=== PATIENT | male | born 1965 | race Caucasian/White ===

== ENCOUNTER 2018-06-17 20:00 | Inpatient (IN) | payer MEDICARE, OTHER ==
[2018-06-18 01:48] VITALS: BP 123/65
[2018-06-18] MEDS ORDERED: LACOSAMIDE PO SCH (09:00)
[2018-06-18] MEDS ORDERED: LISINOPRIL PO SCH (09:00)
[2018-06-18] MEDS ORDERED: MYCOPHENOLATE MOFETIL PO SCH (09:00)
[2018-06-18] MEDS: Levothyroxine 0.088 Mg Tab PO SCH (09:30)
[2018-06-18] MEDS: LURASIDONE HCL PO SCH (13:00)
[2018-06-18] MEDS ORDERED: TACROLIMUS PO SCH (17:00)
--- NOTE | 2018-06-18 19:20 | History & Physical ---
ADMIT DATE: 06/17/2018 DATE OF ADMISSION: 06/17/2018 REASON FOR ADMISSION: Psychiatric disorder. HISTORY OF PRESENT ILLNESS: This 53-year-old male with underlying multiple medical problems including renal transplant, seizure disorder, hypothyroidism, old CVA; late effect, was admitted for underlying psychiatric illness by Dr. Corley. Dr. Corley requested medical H and P on this patient. The patient is complaining of headache and low back pain per nursing staff. No reported fever, no chills, no nausea, no vomiting, no diarrhea, no abdominal pain, no constipation, no bleeding issues reported. PAST MEDICAL HISTORY: As per HPI. PAST SURGICAL HISTORY: No Signiant past surgical history. SOCIAL HISTORY: The patient is a prison resident. No reported alcohol or tobacco use. CURRENT MEDICATIONS: Tylenol, Ecotrin, vitamin D3, Depakote, Atarax, Vimpat, Keppra, Synthroid, Ativan, mag oxide, prednisone, Zoloft, tacrolimus, Ultram, and Ambien. ALLERGIES: ALLERGIC TO FISH, HYDROMORPHONE, KETOROLAC. REVIEW OF SYSTEMS: As per HPI, 12-point system reviewed, appears negative. PHYSICAL EXAMINATION: VITAL SIGNS: Temperature 97.4, pulse 68, respiration 18, blood pressure , pulse oximetry 98% on room air. HEART: S1, S2 normal. LUNGS: Clear to auscultation. ABDOMEN: Soft. EXTREMITIES: No edema. NEUROLOGIC: The patient is awake, but confused, left-sided weakness noted. LABORATORY DATA: Available laboratory data has been reviewed. ASSESSMENT: 1. Old cerebrovascular accident, late effect. 2. Renal transplant status. 3. Seizure disorder. 4. Hypothyroidism. 5. Vitamin D deficiency. 6. Low back pain. 7. Mental disorder. PLAN: The patient admitted to [facility]. Psych management per psychiatrist. The patient will be continued on Prograf, prednisone, Synthroid, Keppra, Vimpat, Atarax, vitamin D3, aspirin, Tylenol. Tramadol ordered for pain control. Fall precaution, aspiration precaution will be given. Patient's condition and plan discussed with nursing staff. Thank you Dr. Corley for allowing me to participate in the care of this patient. JOB# [id number]
[2018-06-19] MEDS: LURASIDONE HCL PO SCH (08:57)
[2018-06-19] MEDS: Levothyroxine 0.088 Mg Tab PO SCH (09:10)
--- NOTE | 2018-06-19 16:10 | General Progress Note ---
Subjective - Review of Systems Service Date: 06/19/18 Subjective: Patient doing fine denied any complaints Objective - Results Recent Labs: Laboratory Last Values POC Glucose 92 MG/DL (70 - 105) 06/17/18 21:52 - Physical Exam Vitals and I&O: Vital Signs Temp 97.6 F 06/18/18 18:25 Pulse 69 06/18/18 18:25 Resp 19 06/18/18 18:25 BP 130/74 06/18/18 18:25 Pulse Ox 95 06/18/18 18:25 Active Medications: Current Medications Acetaminophen (Tylenol) 650 mg PO Q4HR PRN PRN Reason: Mild Pain / Temp above 100 Stop: 08/16/18 22:52 Last Admin: 06/18/18 06:01 Dose: 650 mg Aspirin (Ecotrin) 81 mg PO DAILY [facility] Stop: 08/17/18 08:59 Last Admin: 06/19/18 08:51 Dose: 81 mg Cholecalciferol (Vitamin D3) 1,000 iu PO DAILY [facility] Stop: 08/17/18 08:59 Last Admin: 06/19/18 08:51 Dose: 1,000 iu Divalproex Sodium (Depakote Dr) 250 mg PO BID [facility]; Protocol Stop: 08/17/18 08:59 Last Admin: 06/19/18 08:52 Dose: 250 mg Hydroxyzine HCl (Atarax) 25 mg PO HS [facility]; Protocol Stop: 08/17/18 20:59 Last Admin: 06/18/18 21:16 Dose: 25 mg Lacosamide (Vimpat) 100 mg PO DAILY [facility] Stop: 08/17/18 08:59 Last Admin: 06/19/18 08:51 Dose: 100 mg Levetiracetam (Keppra) 500 mg PO BID [facility] Stop: 08/17/18 08:59 Last Admin: 06/19/18 08:51 Dose: 500 mg Levothyroxine Sodium (Synthroid) 0.088 mg PO DAILY [facility] Stop: 08/17/18 08:59 Last Admin: 06/19/18 09:10 Dose: Not Given Lorazepam (Ativan) 0.5 mg PO Q4HR PRN; Protocol PRN Reason: Anxiety Stop: 07/17/18 22:52 Last Admin: 06/18/18 10:16 Dose: 0.5 mg Magnesium Oxide (Mag-Oxide) 400 mg PO BID [facility] Stop: 08/17/18 08:59 Last Admin: 06/19/18 08:51 Dose: 400 mg Miscellaneous (Lurasidone Hcl [Latuda]) 1 tab PO DAILY [facility] Stop: 08/17/18 08:59 Last Admin: 06/19/18 08:57 Dose: 1 tab Miscellaneous (Lisinopril [Zestril*]) 1 tab PO DAILY [facility] Stop: 08/17/18 08:59 Patient Own Medication (Patient Own Med) 1 PO BID [facility] Stop: 08/18/18 16:59 Prednisone (Deltasone) 5 mg PO DAILY [facility] Stop: 08/17/18 08:59 Last Admin: 06/19/18 08:51 Dose: 5 mg Sertraline HCl (Zoloft) 150 mg PO DAILY [facility] Stop: 08/17/18 08:59 Last Admin: 06/19/18 08:51 Dose: 150 mg Tramadol HCl (Ultram) 50 mg PO Q6HR PRN PRN Reason: Pain (Moderate) Stop: 08/17/18 16:27 Last Admin: 06/19/18 09:33 Dose: 50 mg Zolpidem Tartrate (Ambien) 5 mg PO HS PRN PRN Reason: Insomnia Stop: 08/16/18 22:52 Last Admin: 06/17/18 23:24 Dose: 5 mg Cardiovascular: Regular rate Lungs: Clear to auscultation Assessment/Plan - Assessment Assessment: Low back pain Seizure disorder Old cva late affect Hypothyroidism - Plan Plan: Patient doing fine medically Continue current medical treatment plan
--- NOTE | 2018-06-19 19:54 | Progress Notes ---
DATE: 06/19/2018 SUBJECTIVE: Chart reviewed and the patient interviewed. Also discussed the patient's condition with staff and reviewed records and labs. The patient continued to be in angry mood. The patient also is still depressed and is still withdrawn and easily agitated. The patient also is living with his mother and he is feeling overwhelmed. The patient also is still feeling hopeless and is still forgetful and has difficulty juan for safety. Otherwise, the patient continued to take Depakote and Zoloft with no side effects. ASSESSMENT: The patient still can be dangerous to self. TREATMENT PLAN: Continue to monitor his behavior and his condition closely. Also, continue to work on his ineffective coping and his impulsivity. Also, the patient on Lexapro for his depression. JOB# [id number]
[2018-06-20] MEDS: LURASIDONE HCL PO SCH (09:12)
[2018-06-20] MEDS: Levothyroxine 0.088 Mg Tab PO SCH (09:16)
[2018-06-20 11:10] LABS: % BASOPHILS 0.2 % (0.0-2.0); % EOSINOPHILS 2.5 % (0.0-5.0); % LYMPHOCYTES 24.3 % (20.0-50.0); % MONOCYTES 7.9 % (2.0-10.0); % NEUTROPHILS 65.1 % (40.0-80.0); EOSINOPHILE ABSOLUTE 0.2 Th/cmm (0.1-0.4); HEMATOCRIT 45.7 % (41.0-60); HEMOGLOBIN 15.5 gm/dL (12-16); LYMPHOCYTE ABSOLUTE 2.4 Th/cmm (1.5-3.0); MEAN CELL VOLUME 89.5 fl (80-99); MEAN CORPUSCULAR HEMOGLOBIN 30.4 pg (26.0-30.0); MEAN PLATELET VOLUME 7.4 fl; MONOCYTE ABSOLUTE 0.8 Th/cmm (0.3-1.0); NEUTROPHILE ABSOLUTE 6.3 Th/cmm (1.8-8.0); PLATELET COUNT 224 Th/cmm (150-400); RED BLOOD COUNT 5.11 Mil/cmm (4.30-5.70); RED CELL DISTRIBUTION WIDTH 14.2 % (11.5-20.0); WHITE BLOOD COUNT 9.7 Th/cmm (4.8-10.8)
[2018-06-20 11:21] LABS: ANION GAP 11.2 (7.0-16.0); BUN - UREA NITROGEN 16 mg/dL (7-25); CALCIUM SERUM 9.3 mg/dL (8.6-10.3); CARBON DIOXIDE 22.5 mEq/L (21.0-31.0); CHLORIDE 105 mEq/L (98-107); CREATININE - SERUM 0.8 mg/dL (0.7-1.3); GFR AFRICAN-AMERICAN > 60.0 ml/min (>90); GFR NON AFRICAN-AMERICAN > 60.0 ml/min; GLUCOSE 99 mg/dL (70-105); POTASSIUM SERUM 3.7 mEq/L (3.5-5.1); SODIUM SERUM 135 mEq/L (136-145)
--- NOTE | 2018-06-20 23:00 | Progress Notes ---
DATE: 06/20/[address] Corley. SUBJECTIVE: Case was discussed with staff of the patient, reviewed records. This is a 53-year-old male who is admitted on 06/17/2018. The patient continues to be angry, irritable. The patient was admitted because of depression, out of control behavior, agitation. He ____ his mother, feeling overwhelmed, feeling hopeless. He is forgetful, unable to contract for safety. The patient is on Depakote and Zoloft. His current dosage is Depakote 250 mg twice a day and Latuda was discontinued because it is not available. He is on Zoloft 150 mg a day with no side effects, no sedation, no nausea, no extrapyramidal symptoms. I will continue outpatient group therapy, milieu therapy, and adjust the medication as needed. JOB# [id number]
--- NOTE | 2018-06-21 02:46 | Psychiatric Evaluation ---
DATE OF SERVICE: 06/18/[address] Matthew Corley. REASON FOR ADMISSION: This is a 53-year-old male admitted from [facility]. The patient apparently has been depressed and has been endorsing suicidal ideations. HISTORY OF PRESENT ILLNESS: This is a 53-year-old male admitted to [facility] unit. The patient is coming from [facility]. The patient has been endorsing worsening depression and suicidal ideation and was transferred from [place] to [facility] for ongoing medical care and psychiatric care. The patient was attempted to be interviewed this morning. However, the patient under the blanket, he is not wanting to be interviewed at this time. He is moving around under the blanket and told this provider to "leave him alone." The patient apparently to the staff has been very angry, easily agitated, uncooperative, overall. PAST PSYCHIATRIC HISTORY: Largely unknown at this time due to the patient's poor cooperation. PAST MEDICAL HISTORY: Largely unknown at this time due to the patient's poor cooperation. ALLERGIES: Multiple and they are all reviewed in the chart including FISH, HYDROMORPHONE, KETOROLAC and LEVOFLOXACIN. SOCIAL HISTORY: Largely unknown at this time due to the patient's poor cooperation. LEGAL HISTORY: Largely unknown at this time due to the patient's poor cooperation. FAMILY HISTORY: Largely unknown at this time due to the patient's poor cooperation. REVIEW OF SYSTEMS: Largely unknown at this time due to the patient's poor cooperation. SUBSTANCE ABUSE HISTORY: Largely unknown at this time due to the patient's poor cooperation. MENTAL STATUS EXAMINATION: The patient is lying in bed. He is malodorous. He is covering himself with a blanket and unwilling to remove the blanket. He grunts when his name is called and moves around in bed, but otherwise is uncooperative. He does seem to be alert. He does seem to be oriented to his name due to his response. Otherwise, unable to assess. He appears to have thought disorganization. He also has been endorsing suicidal ideations, but he is guarded in regards to this during the interview and unwilling to discuss anything at this time and he is selectively mute. ASSESSMENT: This is a 53-year-old male admitted to [facility] for worsening depression, suicidal ideations. The patient also has multiple medical issues. The patient has been angry, has been easily agitated, has been labile on the unit. In addition, he has been uncooperative. He is unwilling to participate with the interview. The patient is also guarded in regards to his emotional state. PROVISIONAL DIAGNOSIS: Unspecified depressive disorder. PLAN: 1. We will accept the patient to acute hospitalization. 2. We will continue medications as prescribed. 3. We will encourage the patient to verbalize his needs and to participate in group and milieu therapy. We will also encourage the patient to work with social work case manager and case aide for discharge planning and the need for community resources. Also consult Internal Medicine for physical exam prior to any further treatment. ESTIMATED LENGTH OF STAY: 5-7 days. STRENGTHS: Largely unknown at this time. WEAKNESSES: The patient has poor coping skills and also social stressors. CRITERIA FOR DISCHARGE: The patient will no longer be suicidal. He will be less depressed and have a self-care plan. [facility]# [id number] JV
[2018-06-21] MEDS: Levothyroxine 0.088 Mg Tab PO SCH (09:29)
[2018-06-21] MEDS ORDERED: PROGRAF 1 MG PO SCH (11:00)
--- NOTE | 2018-06-21 16:01 | Progress Notes ---
DATE: 06/21/2018 SUBJECTIVE: The patient is coming in to the [facility], coming from [place], endorsing depression. ____ very depressed, hopeless, and despairing. The patient notes that his appetite has been decreasing. He attests to fair sleep. He was initially very upset. ____ saw the patient yesterday. Noting he remains angry, irritable, down, feeling overwhelmed. The patient mostly isolative, currently in his room, not really interacting with others. Slept for about 6 hours last night. Appearing depressed, withdrawn. ASSESSMENT: Concerns for suicidality, still depressed, withdrawn, mostly staying to himself. We will continue to monitor. Medications were noted. Continue Zoloft. Consider adjunctive treatment for example Josefy. JOB# [id number]
[2018-06-21] MEDS: PROGRAF 1 MG PO SCH (16:28)
[2018-06-22] MEDS: PROGRAF 1 MG PO SCH ×2 (06:45→16:53)
[2018-06-22] MEDS: Levothyroxine 0.088 Mg Tab PO SCH (09:00)
[2018-06-22] MEDS: LATUDA 20 MG PO SCH (16:54)
[2018-06-23] MEDS: PROGRAF 1 MG PO SCH (08:24)
[2018-06-23] MEDS: Levothyroxine 0.088 Mg Tab PO SCH (08:25)
[2018-06-23] MEDS: LATUDA 20 MG PO SCH (09:25)
--- NOTE | 2018-06-23 21:57 | Progress Notes ---
DATE: 06/23/2018 SUBJECTIVE: Chart reviewed and the patient interviewed. Also discussed the patient's condition with the staff and reviewed records and labs. The patient is still anxious and he is still depressed. The patient also is still isolative and withdrawn and is still feeling hopeless and helpless. The patient also is still having difficulty with his temper. Otherwise, the patient is compliant with taking his medications and the patient continued to take Depakote 250 mg twice a day. The patient is still high risk for suicide and still at times talking about suicide with plan to overdose on pills. ASSESSMENT: The patient is still depressed and is still high risk for suicide. TREATMENT PLAN: We will continue monitoring his behavior and his condition closely. Also, continue to work on his irritability, his agitation, and his ineffective coping. [facility]# [id number]
[2018-06-24] MEDS: LATUDA 20 MG PO SCH (10:00)
[2018-06-24] MEDS: Levothyroxine 0.088 Mg Tab PO SCH (10:00)
[2018-06-24] MEDS: PROGRAF 1 MG PO SCH (16:44)
--- NOTE | 2018-06-24 22:09 | General Progress Note ---
Subjective - Review of Systems Subjective: Patient doing fine denied any complaints Objective - Results Result Diagrams: 06/20/18 10:55 06/20/18 10:55 Recent Labs: Laboratory Last Values WBC 9.7 Th/cmm (4.8-10.8) 06/20/18 10:55 RBC 5.11 Mil/cmm (4.30-5.70) 06/20/18 10:55 Hgb 15.5 gm/dL (12-16) 06/20/18 10:55 Hct 45.7 % (41.0-60) 06/20/18 10:55 MCV 89.5 fl (80-99) 06/20/18 10:55 MCH 30.4 pg (26.0-30.0) H 06/20/18 10:55 MCHC Differential 34.0 pg (28.0-36.0) 06/20/18 10:55 RDW 14.2 % (11.5-20.0) 06/20/18 10:55 Plt Count 224 Th/cmm (150-400) 06/20/18 10:55 MPV 7.4 fl 06/20/18 10:55 Neutrophils % 65.1 % (40.0-80.0) 06/20/18 10:55 Lymphocytes % 24.3 % (20.0-50.0) 06/20/18 10:55 Monocytes % 7.9 % (2.0-10.0) 06/20/18 10:55 Eosinophils % 2.5 % (0.0-5.0) 06/20/18 10:55 Basophils % 0.2 % (0.0-2.0) 06/20/18 10:55 Sodium 135 mEq/L (136-145) L 06/20/18 10:55 Potassium 3.7 mEq/L (3.5-5.1) 06/20/18 10:55 Chloride 105 mEq/L (98-107) 06/20/18 10:55 Carbon Dioxide 22.5 mEq/L (21.0-31.0) 06/20/18 10:55 Anion Gap 11.2 (7.0-16.0) 06/20/18 10:55 BUN 16 mg/dL (7-25) 06/20/18 10:55 Creatinine 0.8 mg/dL (0.7-1.3) 06/20/18 10:55 Est GFR ( Amer) > 60.0 ml/min (>90) 06/20/18 10:55 Est GFR (Non-Af Amer) > 60.0 ml/min 06/20/18 10:55 BUN/Creatinine Ratio 20.0 06/20/18 10:55 Glucose 99 mg/dL (70-105) 06/20/18 10:55 POC Glucose 92 MG/DL (70 - 105) 06/17/18 21:52 Calcium 9.3 mg/dL (8.6-10.3) 06/20/18 10:55 Valproic Acid 20.5 ug/mL (50.0-100.0) L 06/23/18 08:22 - Physical Exam Vitals and I&O: Vital Signs Temp 98.2 F 06/24/18 15:34 Pulse 88 06/24/18 15:34 Resp 19 06/24/18 15:34 BP 117/62 06/24/18 15:34 Pulse Ox 96 06/24/18 15:34 Intake & Output 06/24/18 06/24/18 06/25/18 06:59 18:59 06:59 Intake Total 500 1000 Balance 500 1000 Intake: Oral 500 1000 Other: # Voids 2 4 # Bowel Movements 0 0 Active Medications: Current Medications Acetaminophen (Tylenol) 650 mg PO Q4HR PRN PRN Reason: Mild Pain / Temp above 100 Stop: 08/16/18 22:52 Last Admin: 06/20/18 21:06 Dose: 650 mg Aspirin (Ecotrin) 81 mg PO DAILY [facility] Stop: 08/17/18 08:59 Last Admin: 06/24/18 10:00 Dose: 81 mg Cholecalciferol (Vitamin D3) 1,000 iu PO DAILY [facility] Stop: 08/17/18 08:59 Last Admin: 06/24/18 10:00 Dose: 1,000 iu Divalproex Sodium (Depakote Dr) 250 mg PO BID [facility]; Protocol Stop: 08/17/18 08:59 Last Admin: 06/24/18 16:45 Dose: 250 mg Hydroxyzine HCl (Atarax) 25 mg PO HS [facility]; Protocol Stop: 08/17/18 20:59 Last Admin: 06/24/18 21:25 Dose: 25 mg Lacosamide (Vimpat) 100 mg PO DAILY [facility] Stop: 08/17/18 08:59 Last Admin: 06/24/18 10:00 Dose: 100 mg Levetiracetam (Keppra) 500 mg PO BID [facility] Stop: 08/17/18 08:59 Last Admin: 06/24/18 16:45 Dose: 500 mg Levothyroxine Sodium (Synthroid) 0.088 mg PO DAILY [facility] Stop: 08/17/18 08:59 Last Admin: 06/24/18 10:00 Dose: Not Given Lorazepam (Ativan) 0.5 mg PO Q4HR PRN; Protocol PRN Reason: Anxiety Stop: 07/17/18 22:52 Last Admin: 06/23/18 21:33 Dose: 0.5 mg Magnesium Oxide (Mag-Oxide) 400 mg PO BID [facility] Stop: 08/17/18 08:59 Last Admin: 06/24/18 16:45 Dose: 400 mg Patient Own Med- Latuda (Lurasidone) 20mg Tab 1 PO DAILY [facility] Stop: 08/21/18 11:59 Last Admin: 06/24/18 10:00 Dose: 1 Patient Own Med- Prograf (Tacrolimus) 1mg Cap 1 PO BIDAC [facility] Stop: 08/20/18 10:59 Last Admin: 06/24/18 16:44 Dose: 1 Prednisone (Deltasone) 5 mg PO DAILY [facility] Stop: 08/17/18 08:59 Last Admin: 06/24/18 10:00 Dose: 5 mg Sertraline HCl (Zoloft) 200 mg PO DAILY [facility] Stop: 08/22/18 08:59 Last Admin: 06/24/18 10:00 Dose: 200 mg Tramadol HCl (Ultram) 50 mg PO Q6HR PRN PRN Reason: Pain (Moderate) Stop: 08/17/18 16:27 Last Admin: 06/23/18 21:33 Dose: 50 mg Zolpidem Tartrate (Ambien) 5 mg PO HS PRN PRN Reason: Insomnia Stop: 08/16/18 22:52 Last Admin: 06/23/18 21:30 Dose: 5 mg Cardiovascular: Regular rate Lungs: Clear to auscultation Assessment/Plan - Assessment Assessment: Low back pain Seizure disorder Old cva late affect Hypothyroidism - Plan Plan: Patient doing fine medically Continue current medical treatment plan Nutritional Asmnt/Malnutr-PDOC - Dietary Evaluation Malnutrition Findings (Please click <Entered> for more info): Nutritional Asmnt/Malnutrition Start: 06/24/18 13: 16 Text: Status: Complete Freq: Protocol: Document 06/24/18 13:16 STEPHEN (Rec: 06/24/18 13:51 STEPHEN [email or web address]) Nutritional Asmnt/Malnutrition Patient General Information Nutritional Screening Low Risk Diagnosis Psychiatric disorder Pertinent Medical Hx/Surgical Hx renal transplant, seizure disorder, hypothyroidism, old CVA. Subjective Information PO intake over the last 2 days : 50-100-75-0%, about 50% overall (meeting 90% of estimated protein needs and 61 % estimeated energy needs). Pt refused breakfast and dinner 06/23. Pt sleeping in room at time of visit. Per nurse, Pt ate 90% of breakfast this morning. Current Diet Order/ Nutrition Support regluar Pertinent Medications Vit D3, synthroid, Mag-Oxide Pertinent Labs 06/20 Na 135 Nutritional Hx/Data Height 1.73 m Height (Calculated Centimeters) 172.7 Current Weight (lbs) 95.254 kg Weight (Calculated Kilograms) 95.3 Weight (Calculated Grams) 65440.4 [place] Body Weight 154 Body Mass Index (BMI) 31.9 Weight Status Obese GI Symptoms GI Symptoms None Last BM none noted Skin Integrity/Comment: Potential risk due to immobility skin intact Current %PO Good (75-100%) Estimated Nutritional Goals BEE in Kcals: Adj wt of IBW Calories/Kcals/Kg 25-30 Kcals Calculated 8470-0807 Protein: Adj wt of IBW Protein g/k.8-1 Protein Calculated 64-80 Fluid: ml 4812-4387 (1ml/kcal) Nutritional Problem No current Nutrition Prob Problem N/A Malnutrition Related to Morbid Obesity Malnutrition related to morbid obesity No Intervention/Recommendation Comments Monitor PO intake. Continue current regular diet order. Pt moderate risk, Follow-up in 3 -5 days, 06/27-06/29. Expected Outcomes/Goals Expected Outcomes/Goals Pt to consume >75% estimated energy and continue to consume >75% protein needs within 2-3 days. Reviewed by Berta Stein RD Physician Parameters for PEM Normal Weight % 90% - 110% (Normal)
[2018-06-25] MEDS: PROGRAF 1 MG PO SCH ×2 (06:45→16:17)
[2018-06-25] MEDS: LATUDA 20 MG PO SCH (09:00)
[2018-06-25] MEDS: Levothyroxine 0.088 Mg Tab PO SCH (12:10)
--- NOTE | 2018-06-25 23:38 | Progress Notes ---
DATE: 06/25/[address] Corley. Case was discussed with staff of the patient, reviewed records. This is a well-known case to me as I have seen him before covering for Dr. Corley. The patient continues to be depressed, continues to isolate himself, withdrawn, feeling hopeless and helpless, difficulty with . The patient has been compliant with the medication. He is still at risk for suicide with plan to overdose, but he is willing to contract for safety while in the hospital, has been compliant with the medication with no side effects, no sedation, no nausea and he is on Depakote 250 mg twice a day and Zoloft 200 mg daily and with no side effects with the medication, no sedation, no nausea. We will continue the patient with group therapy, milieu therapy, and adjust medication as needed. JOB# [id number]
[2018-06-26] MEDS: PROGRAF 1 MG PO SCH ×2 (09:06→16:46)
[2018-06-26] MEDS: Levothyroxine 0.088 Mg Tab PO SCH (09:07)
[2018-06-26] MEDS: LATUDA 20 MG PO SCH (09:09)
--- NOTE | 2018-06-26 13:06 | General Progress Note ---
Subjective - Review of Systems Service Date: 06/26/18 Subjective: Patient doing fine denied any complaints Objective - Results Result Diagrams: 06/20/18 10:55 06/20/18 10:55 Recent Labs: Laboratory Last Values WBC 9.7 Th/cmm (4.8-10.8) 06/20/18 10:55 RBC 5.11 Mil/cmm (4.30-5.70) 06/20/18 10:55 Hgb 15.5 gm/dL (12-16) 06/20/18 10:55 Hct 45.7 % (41.0-60) 06/20/18 10:55 MCV 89.5 fl (80-99) 06/20/18 10:55 MCH 30.4 pg (26.0-30.0) H 06/20/18 10:55 MCHC Differential 34.0 pg (28.0-36.0) 06/20/18 10:55 RDW 14.2 % (11.5-20.0) 06/20/18 10:55 Plt Count 224 Th/cmm (150-400) 06/20/18 10:55 MPV 7.4 fl 06/20/18 10:55 Neutrophils % 65.1 % (40.0-80.0) 06/20/18 10:55 Lymphocytes % 24.3 % (20.0-50.0) 06/20/18 10:55 Monocytes % 7.9 % (2.0-10.0) 06/20/18 10:55 Eosinophils % 2.5 % (0.0-5.0) 06/20/18 10:55 Basophils % 0.2 % (0.0-2.0) 06/20/18 10:55 Sodium 135 mEq/L (136-145) L 06/20/18 10:55 Potassium 3.7 mEq/L (3.5-5.1) 06/20/18 10:55 Chloride 105 mEq/L (98-107) 06/20/18 10:55 Carbon Dioxide 22.5 mEq/L (21.0-31.0) 06/20/18 10:55 Anion Gap 11.2 (7.0-16.0) 06/20/18 10:55 BUN 16 mg/dL (7-25) 06/20/18 10:55 Creatinine 0.8 mg/dL (0.7-1.3) 06/20/18 10:55 Est GFR ( Amer) > 60.0 ml/min (>90) 06/20/18 10:55 Est GFR (Non-Af Amer) > 60.0 ml/min 06/20/18 10:55 BUN/Creatinine Ratio 20.0 06/20/18 10:55 Glucose 99 mg/dL (70-105) 06/20/18 10:55 POC Glucose 92 MG/DL (70 - 105) 06/17/18 21:52 Calcium 9.3 mg/dL (8.6-10.3) 06/20/18 10:55 Valproic Acid 20.5 ug/mL (50.0-100.0) L 06/23/18 08:22 - Physical Exam Vitals and I&O: Vital Signs Temp 98.4 F 06/26/18 06:30 Pulse 65 06/26/18 06:30 Resp 20 06/26/18 06:30 BP 121/70 06/26/18 06:30 Pulse Ox 96 06/26/18 06:30 Intake & Output 06/25/18 06/26/18 06/26/18 18:59 06:59 18:59 Intake Total 1000 Balance 1000 Intake: Oral 1000 Other: # Voids 3 # Bowel Movements 1 Active Medications: Current Medications Acetaminophen (Tylenol) 650 mg PO Q4HR PRN PRN Reason: Mild Pain / Temp above 100 Stop: 08/16/18 22:52 Last Admin: 06/25/18 04:36 Dose: 650 mg Aspirin (Ecotrin) 81 mg PO DAILY [facility] Stop: 08/17/18 08:59 Last Admin: 06/26/18 09:06 Dose: 81 mg Cholecalciferol (Vitamin D3) 1,000 iu PO DAILY [facility] Stop: 08/17/18 08:59 Last Admin: 06/26/18 09:05 Dose: 1,000 iu Divalproex Sodium (Depakote Dr) 250 mg PO BID [facility]; Protocol Stop: 08/17/18 08:59 Last Admin: 06/26/18 09:04 Dose: 250 mg Hydroxyzine HCl (Atarax) 25 mg PO HS [facility]; Protocol Stop: 08/17/18 20:59 Last Admin: 06/25/18 20:43 Dose: 25 mg Levetiracetam (Keppra) 500 mg PO BID [facility] Stop: 08/17/18 08:59 Last Admin: 06/26/18 09:04 Dose: 500 mg Levothyroxine Sodium (Synthroid) 0.088 mg PO DAILY [facility] Stop: 08/17/18 08:59 Last Admin: 06/26/18 09:07 Dose: Not Given Lorazepam (Ativan) 0.5 mg PO Q4HR PRN; Protocol PRN Reason: Anxiety Stop: 07/17/18 22:52 Last Admin: 06/25/18 20:44 Dose: 0.5 mg Magnesium Oxide (Mag-Oxide) 400 mg PO BID [facility] Stop: 08/17/18 08:59 Last Admin: 06/26/18 09:04 Dose: 400 mg Patient Own Med- Latuda (Lurasidone) 20mg Tab 1 PO DAILY [facility] Stop: 08/21/18 11:59 Last Admin: 06/26/18 09:09 Dose: 1 Patient Own Med- Prograf (Tacrolimus) 1mg Cap 1 PO BIDAC [facility] Stop: 08/20/18 10:59 Last Admin: 06/26/18 09:06 Dose: Not Given Prednisone (Deltasone) 5 mg PO DAILY [facility] Stop: 08/17/18 08:59 Last Admin: 06/26/18 09:04 Dose: 5 mg Sertraline HCl (Zoloft) 200 mg PO DAILY [facility] Stop: 08/22/18 08:59 Last Admin: 06/26/18 09:05 Dose: 200 mg Zolpidem Tartrate (Ambien) 5 mg PO HS PRN PRN Reason: Insomnia Stop: 08/16/18 22:52 Last Admin: 06/25/18 20:44 Dose: 5 mg Cardiovascular: Regular rate Lungs: Clear to auscultation Assessment/Plan - Assessment Assessment: Low back pain Seizure disorder Old cva late affect Hypothyroidism - Plan Plan: Patient doing fine medically Continue current medical treatment plan Nutritional Asmnt/Malnutr-PDOC - Dietary Evaluation Malnutrition Findings (Please click <Entered> for more info): Nutritional Asmnt/Malnutrition Start: 06/24/18 13: 16 Text: Status: Complete Freq: Protocol: Document 06/24/18 13:16 STEPHEN (Rec: 06/24/18 13:51 STEPHEN [id number]) Nutritional Asmnt/Malnutrition Patient General Information Nutritional Screening Low Risk Diagnosis Psychiatric disorder Pertinent Medical Hx/Surgical Hx renal transplant, seizure disorder, hypothyroidism, old CVA. Subjective Information PO intake over the last 2 days : 50-100-75-0%, about 50% overall (meeting 90% of estimated protein needs and 61 % estimeated energy needs). Pt refused breakfast and dinner 06/23. Pt sleeping in room at time of visit. Per nurse, Pt ate 90% of breakfast this morning. Current Diet Order/ Nutrition Support regluar Pertinent Medications Vit D3, synthroid, Mag-Oxide Pertinent Labs 06/20 Na 135 Nutritional Hx/Data Height 1.73 m Height (Calculated Centimeters) 172.7 Current Weight (lbs) 95.254 kg Weight (Calculated Kilograms) 95.3 Weight (Calculated Grams) 33332.4 [place] Body Weight 154 Body Mass Index (BMI) 31.9 Weight Status Obese GI Symptoms GI Symptoms None Last BM none noted Skin Integrity/Comment: Potential risk due to immobility skin intact Current %PO Good (75-100%) Estimated Nutritional Goals BEE in Kcals: Adj wt of IBW Calories/Kcals/Kg 25-30 Kcals Calculated 7194-5462 Protein: Adj wt of IBW Protein g/k.8-1 Protein Calculated 64-80 Fluid: ml 5816-5254 (1ml/kcal) Nutritional Problem No current Nutrition Prob Problem N/A Malnutrition Related to Morbid Obesity Malnutrition related to morbid obesity No Intervention/Recommendation Comments Monitor PO intake. Continue current regular diet order. Pt moderate risk, Follow-up in 3 -5 days, 06/27-06/29. Expected Outcomes/Goals Expected Outcomes/Goals Pt to consume >75% estimated energy and continue to consume >75% protein needs within 2-3 days. Reviewed by Berta Stein RD Physician Parameters for [facility] Normal Weight % 90% - 110% (Normal)
--- NOTE | 2018-06-26 17:23 | Progress Notes ---
DATE: 06/24/2018 PSYCHIATRIC PROGRESS NOTE SUBJECTIVE: Chart reviewed and patient interviewed. Also discussed the patient's condition with the staff and reviewed records and labs. The patient is complaining of stiff neck. He is still depressed and crying. The patient also is still isolative and withdrawn. The patient also is labile and he is in a depressed mood. He also is still guarded and withdrawn. Otherwise, the patient is compliant with taking his medications with no side effects of medications. ASSESSMENT: The patient is still depressed and is still withdrawn. TREATMENT PLAN: Continue to monitor his behavior and his condition closely. Also, continue to work on his ineffective coping and his depressed mood and we will continue to follow up. [facility]# [id number]
--- NOTE | 2018-06-26 18:19 | Progress Notes ---
DATE: SUBJECTIVE: Chart reviewed and the patient interviewed. Also discussed the patient's condition with the staff and reviewed records and labs. The patient seems to be slightly calmer, but he still has episodes of agitation and paranoia. Also, is still confused. Also, unpredictable behavior and gets agitated at times. Otherwise, the patient is compliant with taking his medications with no side effects of medications. ASSESSMENT: The patient is still agitated and confused. TREATMENT PLAN: Continue to monitor behavior and condition closely. Also, continue adjusting psychotropic medications and followup. JOB# [id number]
--- NOTE | 2018-06-26 21:47 | Progress Notes ---
DATE: 06/26/[address] Corley. Case was discussed with staff of the patient, reviewed records. The patient continues to isolate himself. Continues to have thoughts of wanting to harm himself at times; however, he is willing to contract for safety. He is sleeping better, eating better. He has been compliant with the medication with no side effects, no sedation, no nausea. His Zoloft was increased to 200 mg a day. He is on Depakote 250 mg twice a day and we will continue outpatient group therapy, milieu therapy, and adjust medications as needed. JOB# [id number]
[2018-06-27] MEDS: PROGRAF 1 MG PO SCH ×2 (07:04→17:45)
[2018-06-27] MEDS: Levothyroxine 0.088 Mg Tab PO SCH (09:21)
[2018-06-27] MEDS: LATUDA 20 MG PO SCH (09:22)
[2018-06-28] MEDS: Levothyroxine 0.088 Mg Tab PO SCH (08:43)
[2018-06-28] MEDS: LATUDA 20 MG PO SCH (08:43)
--- NOTE | 2018-06-28 22:20 | Discharge Summary ---
DATE OF DISCHARGE: 06/28/2018 AGE: 53. SEX: Male. PHYSICIAN: Dr. Corley. FINAL DIAGNOSES: PRIMARY DIAGNOSES: Schizoaffective disorder, bipolar type, severe, with psychotic features. REASON FOR HOSPITALIZATION: The patient was admitted to the hospital because of increased agitation and irritability with yelling and screaming behavior. The patient also at times was exhibiting depressed mood and lack of motivation and lack of interest. HOSPITAL COURSE: The patient continued to be in irritable mood and agitated. The patient also continued to have severe mood swings and wanted to be left alone. The patient was compliant with taking his medications. Depakote blood level that was done on 06/23/2018 came back 20.5 and Depakote was increased to 500 mg twice a day. The patient's affect was brighter. He was less irritable and less agitated. Also, interacted appropriately with others. The patient was discharged from the hospital. The patient was accepted in [facility]. Physical examination of the patient showed no major medical problems. The patient had no major medical problems while in the hospital. AFTER DISCHARGE PLANS: The patient discharged from the hospital with plans to be followed as an outpatient. EXPECTED OUTCOME AFTER DISCHARGE: Fair if the patient continued to comply with taking his medications. [facility]# [id number]
--- NOTE | 2018-06-28 23:30 | Progress Notes ---
DATE: 06/28/2018 PSYCHIATRIC PROGRESS NOTE Chart reviewed and the patient interviewed. Also discussed the patient's condition with the staff and reviewed records and labs. The patient is still agitated, but seems to be in general calmer than before. The patient also still has episodes of yelling and yesterday twice he was yelling and screaming for no reason. The patient also is helpless. Also in a depressed mood. The patient also has increased activities during physical therapy and he is participating more and tries to be independent. Otherwise, the patient continued to comply with taking his medications with no side effects of medications. Depakote blood level that was done on 06/23/2018 came back to be 20.5. We will increase Depakote to 500 mg twice a day and we will monitor Depakote blood level and will continue to follow up closely. JOB# [id number]
--- NOTE | 2018-06-29 00:15 | Progress Notes ---
DATE: 06/27/2018 PSYCHIATRIC PROGRESS NOTE SUBJECTIVE: Chart reviewed and the patient interviewed. Also discussed the patient's condition with the staff and reviewed records and labs. The patient is still in irritable mood and is still depressed. The patient also is withdrawn and interacting minimally with peers and with others. He still has episodes of yelling and screaming, but seems to be slightly less. The patient also said that he thinks that he is paralyzed. His depression is still severe, but he is still responding. ASSESSMENT: The patient is still depressed and also had episodes of agitation. TREATMENT PLAN: Continue Depakote and Zoloft and Keppra. Continue to work on his ineffective coping and poor impulse control. JOB# [id number]
== END 2018-06-28 12:45 | disposition home or self-care (01) | DRG 885 ==
LOC: GERO2 20:00 → GERO 06-20 20:30
PROVIDERS: ADMIT Psychiatry & Neurology Psychiatry; ATTEND Psychiatry & Neurology Psychiatry
DX: F25.0 Schizoaffective disorder, bipolar type (principal); Z94.0 Kidney transplant status; G40.909 Epilepsy, unspecified, not intractable, without status epilepticus; E03.9 Hypothyroidism, unspecified; I69.30 Unspecified sequelae of cerebral infarction; E55.9 Vitamin D deficiency, unspecified; M54.5 Low back pain; Z88.1 Allergy status to other antibiotic agents; F32.9 Major depressive disorder, single episode, unspecified; F29 Unspecified psychosis not due to a substance or known physiological condition; Z88.8 Allergy status to other drugs, medicaments and biological substances
CPT/HCPCS: 36415-UA; 80048-TC; 80164-TC; 82948-90; 85025-TC; 97530; J5707; J7512; X3904; Z7610